=== PATIENT | male | born 1975 | race Caucasian/White ===

== ENCOUNTER 2019-01-21 23:28 | Inpatient (IN) | payer BC ==
[~2019-01-21] VITALS: Ht 172.7 cm; Wt 111.0 kg
[~2019-01-21 23:28] MED LIST: ASPI-831 PO; ATOR-2 PO; BENA20TA4 PO; IBUP-1982 PO; NICO-546 TD; TICA90TA PO
[2019-01-22] MEDS: POTASSIUM CHLORIDE 100 ML IVPB SCH ×2 (02:11→04:24)
--- NOTE | 2019-01-22 03:28 | ERD ---
ER Documentation Chief Complaint Chief Complaint CHEST PAIN X4DAYS WITH COUGH; DENIES CARDIAC HX HPI This is a very pleasant 43 denies any chest pain on and off for the past 4 days. Denies history of cardiac disease. Pain is midsternal radiating to the left shoulder. Mild associated shortness of breath on exertion. Mild nausea no vomiting no fevers no chills no diaphoresis. Patient has not followed up with her primary care physician in "years ". Smokes 3 packs of cigarettes a day. ROS All systems reviewed and are negative except as per history of present illness. Medications Home Meds No Active Prescriptions or Reported Meds Allergies Allergies: Coded Allergies: No Known Drug Allergies (Verified Allergy, Unknown, 01/22/19) PMhx/Soc History of Surgery: Yes (NASAL SURGERY) Anesthesia Reaction: No Hx Neurological Disorder: No Hx Respiratory Disorders: No Hx Cardiac Disorders: Yes (HTN) Hx Psychiatric Problems: No Hx Miscellaneous Medical Probl: No Hx Alcohol Use: No Hx Substance Use: No Hx Tobacco Use: Yes Smoking Status: Current some day smoker Physical Exam Vitals Vital Signs Date Temp Pulse Resp B/P (MAP) Pulse Ox O2 O2 Flow FiO2 Time Delivery Rate 01/22/19 57 18 125/91 96 Room Air 02:33 (102) 01/21/19 77 18 160/89 100 Room Air 23:50 (112) 01/21/19 97.0 84 81 189/115 99 23:31 (139) Physical Exam Const: No acute distress Head: Atraumatic Eyes: Normal Conjunctiva ENT: Normal External Ears, Nose and Mouth. Neck: Full range of motion. No meningismus. Resp: Clear to auscultation bilaterally Cardio: Regular rate and rhythm, no murmurs Abd: Soft, non tender, non distended. Normal bowel sounds Skin: No petechiae or rashes Back: No midline or flank tenderness Ext: No cyanosis, or edema Neur: Awake and alert Psych: Normal Mood and Affect Result Diagram: 01/22/19 0008 01/22/19 0049 Results 24 hrs Laboratory Tests Test 01/22/19 00:08 01/22/19 00:49 White Blood Count 11.8 10^3/ul Red Blood Count 4.42 10^6/ul Hemoglobin 13.5 g/dl Hematocrit 41.4 % Mean Corpuscular Volume 93.7 fl Mean Corpuscular Hemoglobin 30.5 pg Mean Corpuscular Hemoglobin Concent 32.6 g/dl Red Cell Distribution Width 12.7 % Platelet Count 228 10^3/UL Mean Platelet Volume 9.7 fl Immature Granulocytes % 0.300 % Neutrophils % 60.4 % Lymphocytes % 29.1 % Monocytes % 6.8 % Eosinophils % 3.1 % Basophils % 0.3 % Nucleated Red Blood Cells % 0.0 /100WBC Immature Granulocytes # 0.040 10^3/ul Neutrophils # 7.1 10^3/ul Lymphocytes # 3.4 10^3/ul Monocytes # 0.8 10^3/ul Eosinophils # 0.4 10^3/ul Basophils # 0.0 10^3/ul Nucleated Red Blood Cells # 0.0 10^3/ul Sodium Level 141 mmol/L Potassium Level 2.7 mmol/L Chloride Level 117 mmol/L Carbon Dioxide Level 21 mmol/L Anion Gap 3 Blood Urea Nitrogen 12 mg/dl Creatinine 0.66 mg/dl Est Glomerular Filtrat Rate mL/min > 60 mL/min Glucose Level 80 mg/dl Calcium Level 6.3 mg/dl Total Bilirubin 0.5 mg/dl Direct Bilirubin 0.00 mg/dl Indirect Bilirubin 0.5 mg/dl Aspartate Amino Transf (AST/SGOT) 20 IU/L Alanine Aminotransferase (ALT/SGPT) 31 IU/L Alkaline Phosphatase 35 IU/L Troponin I 0.017 ng/ml B-Type Natriuretic Peptide 39 PG/ML Total Protein 5.5 g/dl Albumin 2.6 g/dl Globulin 2.90 g/dl Albumin/Globulin Ratio 0.89 Current Medications Medications Dose Sig/Soraya Start Time Status Last (Trade) Ordered Route PRN Stop Time Admin Dose Reason Admin Potassium 100 ml @ Q2H IVPB 01/22/19 01/22/19 Chloride 50 mls/hr 02:00 02:11 01/22/19 05:59 Procedures/MDM EKG: Rate/Rhythm: [Normal Sinus Rhythm] QRS, ST, T-waves: [No changes consistent w/ acute ischemia] Impression: [No evidence of ischemia or arrhythmia] Chest X-ray 1V Interpreted by me: Soft Tissue: No acute abnormalities Bones: No acute abnormalities Mediastinum/Cardiac Silhouette/Lungs: [No acute abnormalities] Medical decision making: Patient's symptoms are concerning for cardiac cause will require inpatient workup and continuous monitoring. Further w/u for ischemia, arrhythmia, PE or dissection will be deferred to the inpatient team. Potassium was also noted to be low. Repleted here in the emergency department intravenous potassium supplementation Accepting Care Team: Current data and ongoing care discussed. Time: 3:27 AM Primary Provider: Dr. Mims Consulting: Deferred to primary Outstanding Data: none Departure Diagnosis: Primary Impression: Chest pain Chest pain type: unspecified Qualified Codes: R07.9 - Chest pain, unspecified Condition: Serious PAPA MENDES Jan 22, 2019 03:28
[2019-01-22] MEDS ORDERED: ONDANSETRON 4 MG INJ IV PRN ×2 (03:30→12:30)
[2019-01-22] MEDS ORDERED: ACETAMINOPHEN 325 MG TAB PO PRN ×2 (03:30→12:30)
[2019-01-22] MEDS ORDERED: morphine 4 MG/ML VIAL IV STA (05:21)
[2019-01-22] MEDS ORDERED: ONDANSETRON 4 MG INJ IV STA (05:21)
[2019-01-22] MEDS ORDERED: ASPIRIN 81 MG TAB PO STA (05:21)
[2019-01-22] MEDS ORDERED: POTASSIUM CHLORIDE (SR) 20 MEQ TAB PO STA (08:53)
--- NOTE | 2019-01-22 10:44 | QN ---
Documentation Comment Second troponin was positive and the patient was given Lovenox 100 mg subc utaneous. I have also let Dr. Milligan know about the positive troponin. Repeat EKG was done and does not show any ST elevations or depressions. EKG #2 read by me: Rate/Rhythm: Sinus bradycardia rate of 46 Intervals: Normal Impression: Bradycardia without ST elevations TIM AUGUST MD Jan 22, 2019 10:44
[2019-01-22] MEDS ORDERED: ENOXAPARIN 100 MG/ML SYG SC ONE (11:00)
[2019-01-22] MEDS ORDERED: MAGNESIUM HYDROXIDE 30ML CUP PO PRN (12:30)
[2019-01-22] MEDS ORDERED: ZOLPIDEM 5 MG TAB PO PRN (12:30)
[2019-01-22] MEDS ORDERED: morphine 2 MG INJ IV PRN (12:30)
[2019-01-22] MEDS ORDERED: NITROGLYCERIN (SL) 0.4 MG TAB SL PRN (12:30)
[2019-01-22] MEDS ORDERED: DOCUSATE SODIUM 100 MG CAP PO PRN (12:30)
[2019-01-22] MEDS ORDERED: NACL 0.9% 3 ML SYG IV SCH (12:30)
--- NOTE | 2019-01-22 12:39 | HP ---
Date/Time of Note Date/Time of Note DATE: 01/22/19 TIME: 12:30 Assessment/Plan VTE Prophylaxis SCD applied (from Nsg): Yes Pharmacological prophylaxis: LMWH Lines/Catheters IV Catheter Type (from Nrsg): Saline Lock Assessment/Plan Assessment/Plan -Chest pain, rule out acute coronary syndrome, will obtain cardiac enzymes q. 6 hours x 3. 2D echo for evaluation of ejection fraction. Aspirin nitroglycerin and morphine as needed for pain. Admit to telemetry. Dr. Ivory is asked to see patient in cardiology consultation. -Every day smoker, cessation is strongly advised. Further recommendations based on clinical course. Plan of care discussed with Dr. Milligan. Result Diagram: 01/22/19 0008 01/22/19 0940 Results 24hrs Laboratory Tests Test 01/22/19 00:08 01/22/19 00:49 01/22/19 09:40 White Blood Count 11.8 H Red Blood Count 4.42 L Hemoglobin 13.5 L Hematocrit 41.4 L Mean Corpuscular Volume 93.7 Mean Corpuscular Hemoglobin 30.5 Mean Corpuscular Hemoglobin Concent 32.6 Red Cell Distribution Width 12.7 Platelet Count 228 Mean Platelet Volume 9.7 Immature Granulocytes % 0.300 Neutrophils % 60.4 Lymphocytes % 29.1 Monocytes % 6.8 Eosinophils % 3.1 Basophils % 0.3 Nucleated Red Blood Cells % 0.0 Immature Granulocytes # 0.040 H Neutrophils # 7.1 Lymphocytes # 3.4 H Monocytes # 0.8 Eosinophils # 0.4 Basophils # 0.0 Nucleated Red Blood Cells # 0.0 Sodium Level 141 138 Potassium Level 2.7 *L 5.0 # Chloride Level 117 H 105 # Carbon Dioxide Level 21 28 Anion Gap 3 L 5 Blood Urea Nitrogen 12 12 Creatinine 0.66 0.87 Est Glomerular Filtrat Rate mL/min > 60 > 60 Glucose Level 80 97 Calcium Level 6.3 L 9.0 Total Bilirubin 0.5 Direct Bilirubin 0.00 Indirect Bilirubin 0.5 Aspartate Amino Transf (AST/SGOT) 20 Alanine Aminotransferase (ALT/SGPT) 31 Alkaline Phosphatase 35 L Troponin I 0.017 0.616 *H B-Type Natriuretic Peptide 39 Total Protein 5.5 L Albumin 2.6 L Globulin 2.90 Albumin/Globulin Ratio 0.89 HPI/ROS Admit Date/Time Admit Date/Time Hx of Present Illness The patient is 43-year-old [place] male who denies any chronic conditions. Patient developed intermittent chest pressure over the last 5 days which got e xtremely worse yesterday. Pain with radiation to shoulders, upper extremities, and neck. Patient also complains of shortness of breath on exertion and mild nausea. Patient denies fevers chills denies extremity swelling. Patient smokes 2 packs of cigarettes a day smoked for 30 years. Patient does not follow with any physician currently. Patient received aspirin and morphine in the emergency room with some relief in symptoms. Patient will be admitted for further evaluation and management. ROS 12 point review of system is negative except for what mentioned in HPI PMH/Family/Social Past Medical History Medications Current Medications Ondansetron HCl (Zofran Inj) 4 mg ER BRIDGE PRN IV NAUSEA/VOMITING; Start 01/22/19 at 03:30; Stop 01/23/19 at 03:29 Acetaminophen (Tylenol Tab) 650 mg ER BRIDGE PRN PO .MILD PAIN 1-3 OR TEMP; Start 01/22/19 at 03:30; Stop 01/23/19 at 03:29 IV Flush (NS 3 ml) 3 ml PER PROTOCOL IV ; Start 01/22/19 at 12:30; Status UNV Ondansetron HCl (Zofran Inj) 4 mg Q6H PRN IV NAUSEA/VOMITING; Start 01/22/19 at 12:30; Status UNV Nitroglycerin (Nitroglycerin (Sl Tab) 0.4 Mg) 1 tab Q5M PRN SL .CHEST PAIN; Start 01/22/19 at 12:30; Status UNV Acetaminophen (Tylenol Tab) 650 mg Q6H PRN PO .PAIN 1-3 OR TEMP; Start 01/22/19 at 12:30; Status UNV Morphine Sulfate (morphine) 2 mg Q4H PRN IV .PAIN 7-10; Start 01/22/19 at 12:30; Status UNV Zolpidem Tartrate (Ambien) 5 mg QHS PRN PO .INSOMNIA; Start 01/22/19 at 12:30; Status UNV Docusate Sodium (Colace) 100 mg Q12H PRN PO .CONSTIPATION; Start 01/22/19 at 12:30; Status UNV Magnesium Hydroxide (Milk Of Mag) 30 ml DAILY PRN PO .CONSTIPATION; Start 01/22/19 at 12:30; Status UNV Famotidine (Pepcid Iv) 20 mg Q12 IV ; Start 01/22/19 at 21:00; Status UNV Coded Allergies: No Known Drug Allergies (Verified Allergy, Unknown, 01/22/19) Past Surgical History Past Surgical Hx: other (No surgery) Family History Significant Family History: other (Denies any history of sudden cardiac , both parents are alive) Social History Alcohol Use: occasionally Smoking Status: Current some day smoker Drug Use: none Exam/Review of Systems Vital Signs Vitals Vital Signs Date Temp Pulse Resp B/P (MAP) Pulse Ox O2 O2 Flow FiO2 Time Delivery Rate 01/22/19 98.0 60 18 128/89 98 Room Air 11:26 (102) Exam Constitutional: alert, oriented Head: normocephalic Neck: supple Respiratory: clear to auscultation Cardiovascular: regular rate and rhythm Gastrointestinal: soft, non-tender Musculoskeletal: nl extremities to inspection Extremities: normal pulses NOE CARBONE Jan 22, 2019 12:39
[2019-01-22 19:30] VITALS: Ht 172.7 cm; Wt 111.0 kg
[2019-01-22 20:03] VITALS: BP 133/83; PULSE 53; RESP 18
[2019-01-22] MEDS: FAMOTIDINE 20 MG INJ IV SCH (20:48)
[2019-01-22] MEDS: ENOXAPARIN 100 MG/ML SYG SC SCH (21:19)
[2019-01-22 23:59] VITALS: BP 124/63; PULSE 56; RESP 18
[2019-01-23 04:00] VITALS: BP 99/65; PULSE 56; RESP 18
[2019-01-23 07:46] VITALS: BP 111/70; PULSE 53; RESP 17
[2019-01-23] MEDS: FAMOTIDINE 20 MG INJ IV SCH (09:43)
[2019-01-23] MEDS: ASPIRIN (EC) 325 MG TAB PO SCH (09:43)
[2019-01-23] MEDS: ENOXAPARIN 100 MG/ML SYG SC SCH ×2 (09:51→21:54)
[2019-01-23 11:24] VITALS: BP 116/68; PULSE 52; RESP 18
[2019-01-23 15:30] VITALS: BP 132/82; PULSE 56; RESP 19
--- NOTE | 2019-01-23 16:54 | PN ---
Date/Time of Note Date/Time of Note DATE: 01/23/19 TIME: 16:49 Assessment/Plan VTE Prophylaxis Risk score (from Ns)>0 risk: 1 SCD applied (from [facility]): No SCD contraindicated: patient refusal Pharmacological prophylaxis: LMWH Lines/Catheters IV Catheter Type (from [facility]): Saline Lock Assessment/Plan Hospital Course Assessment/Plan -Non-STEMI, continue aspirin and Lovenox. Continue nitroglycerin and morphine PRN for chest pain. 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 Dr. Ivory is chino teresa in cardiology consultation. -Every day smoker, cessation is strongly advised. Further recommendations based on clinical course. Plan of care discussed with Dr. Milligan. Result Diagram: 01/23/19 0537 01/23/19 0537 Results 24hrs Laboratory Tests Test 01/23/19 01:03 01/23/19 05:37 Creatine Kinase 181 Creatine Kinase Index 3.9 Creatinine Kinase MB (Mass) 7.06 H Troponin I 1.440 *H 1.160 *H White Blood Count 8.9 # Red Blood Count 4.62 L Hemoglobin 14.0 Hematocrit 43.6 Mean Corpuscular Volume 94.4 Mean Corpuscular Hemoglobin 30.3 Mean Corpuscular Hemoglobin Concent 32.1 Red Cell Distribution Width 12.9 Platelet Count 272 Mean Platelet Volume 10.0 Immature Granulocytes % 0.400 Neutrophils % 50.9 Lymphocytes % 36.0 Monocytes % 8.2 Eosinophils % 3.9 Basophils % 0.6 Nucleated Red Blood Cells % 0.0 Immature Granulocytes # 0.040 H Neutrophils # 4.5 Lymphocytes # 3.2 H Monocytes # 0.7 Eosinophils # 0.4 Basophils # 0.1 Nucleated Red Blood Cells # 0.0 Sodium Level 139 Potassium Level 4.9 Chloride Level 104 Carbon Dioxide Level 29 Anion Gap 6 Blood Urea Nitrogen 16 Creatinine 1.06 Est Glomerular Filtrat Rate mL/min > 60 Glucose Level 102 Hemoglobin A1c 5.5 Calcium Level 9.0 Magnesium Level 2.2 Total Bilirubin 0.7 Direct Bilirubin 0.00 Indirect Bilirubin 0.7 Aspartate Amino Transf (AST/SGOT) 29 Alanine Aminotransferase (ALT/SGPT) 42 Alkaline Phosphatase 55 # Total Protein 7.1 # Albumin 4.0 # Globulin 3.10 Albumin/Globulin Ratio 1.29 Triglycerides Level 107 Cholesterol Level 229 H LDL Cholesterol, Calculated 181 HDL Cholesterol 27 Cholesterol/HDL Ratio 8.4 Thyroid Stimulating Hormone (TSH) 2.120 Exam/Review of Systems Exam Vitals Vital Signs Date Temp Pulse Resp B/P (MAP) Pulse Ox O2 O2 Flow FiO2 Time Delivery Rate 01/23/19 98.7 56 19 132/82 98 Room Air 15:30 (99) 01/22/19 14:52 Intake and Output 01/22/19 01/22/19 01/23/19 1515:00 23:00 07:00 IntakeIntake Total 240 ml OutputOutput Total 1 ml BalanceBalance 239 ml Exam Constitutional: alert, oriented Head: normocephalic Respiratory: clear to auscultation Cardiovascular: regular rate and rhythm Gastrointestinal: soft, non-tender Musculoskeletal: nl extremities to inspection Extremities: normal pulses Results Results 24hrs Laboratory Tests Test 01/23/19 01:03 01/23/19 05:37 Creatine Kinase 181 Creatine Kinase Index 3.9 Creatinine Kinase MB (Mass) 7.06 H Troponin I 1.440 *H 1.160 *H White Blood Count 8.9 # Red Blood Count 4.62 L Hemoglobin 14.0 Hematocrit 43.6 Mean Corpuscular Volume 94.4 Mean Corpuscular Hemoglobin 30.3 Mean Corpuscular Hemoglobin Concent 32.1 Red Cell Distribution Width 12.9 Platelet Count 272 Mean Platelet Volume 10.0 Immature Granulocytes % 0.400 Neutrophils % 50.9 Lymphocytes % 36.0 Monocytes % 8.2 Eosinophils % 3.9 Basophils % 0.6 Nucleated Red Blood Cells % 0.0 Immature Granulocytes # 0.040 H Neutrophils # 4.5 Lymphocytes # 3.2 H Monocytes # 0.7 Eosinophils # 0.4 Basophils # 0.1 Nucleated Red Blood Cells # 0.0 Sodium Level 139 Potassium Level 4.9 Chloride Level 104 Carbon Dioxide Level 29 Anion Gap 6 Blood Urea Nitrogen 16 Creatinine 1.06 Est Glomerular Filtrat Rate mL/min > 60 Glucose Level 102 Hemoglobin A1c 5.5 Calcium Level 9.0 Magnesium Level 2.2 Total Bilirubin 0.7 Direct Bilirubin 0.00 Indirect Bilirubin 0.7 Aspartate Amino Transf (AST/SGOT) 29 Alanine Aminotransferase (ALT/SGPT) 42 Alkaline Phosphatase 55 # Total Protein 7.1 # Albumin 4.0 # Globulin 3.10 Albumin/Globulin Ratio 1.29 Triglycerides Level 107 Cholesterol Level 229 H LDL Cholesterol, Calculated 181 HDL Cholesterol 27 Cholesterol/HDL Ratio 8.4 Thyroid Stimulating Hormone (TSH) 2.120 Medications Medication Current Medications IV Flush (NS 3 ml) 3 ml PER PROTOCOL IV ; Start 01/22/19 at 12:30 Ondansetron HCl (Zofran Inj) 4 mg Q6H PRN IV NAUSEA/VOMITING; Start 01/22/19 at 12:30 Nitroglycerin (Nitroglycerin (Sl Tab) 0.4 Mg) 1 tab Q5M PRN SL .CHEST PAIN; Start 01/22/19 at 12:30 Acetaminophen (Tylenol Tab) 650 mg Q6H PRN PO .PAIN 1-3 OR TEMP; Start 01/22/19 at 12:30 Morphine Sulfate (morphine) 2 mg Q4H PRN IV .PAIN 7-10; Start 01/22/19 at 12:30 Zolpidem Tartrate (Ambien) 5 mg QHS PRN PO .INSOMNIA; Start 01/22/19 at 12:30 Docusate Sodium (Colace) 100 mg Q12H PRN PO .CONSTIPATION; Start 01/22/19 at 12:30 Magnesium Hydroxide (Milk Of Mag) 30 ml DAILY PRN PO .CONSTIPATION; Start 01/22/19 at 12:30 Carvedilol (Coreg) 6.25 mg BID PO Last administered on 01/22/19at 20:50; Admin Dose 6.25 MG; Start 01/22/19 at 21:00 Enoxaparin Sodium (Lovenox) 100 mg BID SC Last administered on 01/23/19at 09:51; Admin Dose 100 MG; Start 01/22/19 at 21:00; Stop 01/23/19 at 23:00 Aspirin (Ecotrin) 325 mg DAILY PO Last administered on 01/23/19at 09:43; Admin Dose 325 MG; Start 01/23/19 at 09:00 Atorvastatin Calcium (Lipitor) 80 mg HS PO ; Start 01/23/19 at 21:00 Famotidine (Pepcid) 20 mg Q12 PO ; Start 01/23/19 at 21:00 Diazepam (Valium) 5 mg OC ONCE PO ; Start 01/24/19 at 07:00; Stop 01/24/19 at 07:01 Diphenhydramine HCl (Benadryl) 50 mg OC ONCE PO ; Start 01/24/19 at 07:00; Stop 01/24/19 at 07:01 NOE CARBONE Jan 23, 2019 16:54
--- NOTE | 2019-01-23 16:55 | RADRPT ---
Echocardiogram Report Patient Name: Mary Ann MCCORMICK ID: [id number] : 1975 (43y 4m)Study Date: 01/22/2019 1:36:14 PM Gender: MAccession #: [id number] Tech: Naif Molina RDCS Location: [facility] Ref.Physician: NOE CARBONE Height(Cm): BSA: Weight(Kg): Quality: AdequateOrder Physician: NOE CARBONE Account #: Procedures: Echocardiographic Report: Transthoracic echocardiogram with complete 2D, M-Mode, and doppler examination. Indications: Chest Pain. Measurements: 2D/M Mode Doppler Measurement Value Normal Range Measurement Value Normal Range LVIDd 2D 4.9 [ 4.2 - 5.8 ] cm AV Peak Dar 1.5 [ 100.0 - 170.0 ] cm/sec LVIDs 2D 2.9 [ 2.5 - 4.0 ] cm AV Peak PG 9.0 [ 2.0 - 9.0 ] mmHg LVPWd 2D 1.3 [ 0.6 - 1.0 ] cm LVOT Peak Dar 1.1 [ 70.0 - 110.0 ] cm/sec IVSd 2D 1.2 [ 0.6 - 1.0 ] cm LVOT Peak PG 5.0 [ 2.0 - 6.0 ] mmHg AoR Diam 2D 3.1 [ 2.6 - 3.4 ] cm MV E Peak Dar 0.8 [ 60.0 - 130.0 ] cm/sec EDV 2D 113.0 [ 62.0 - 150.0 ] ml MV A Peak Dar 0.6 [ 100.0 - 120.0 ] cm/sec ESV 2D 33.0 [ 21.0 - 61.0 ] ml MV E/A 1.5 [ 0.8 - 1.5 ] ratio EF 2D 70.8 [ 52.0 - 72.0 ] percent MV Decel Time 208 [ 104 - 258 ] msec LA Dimen 2D 3.8 [ 3.0 - 4.0 ] cm Lat E` Dar 0.1 [ 10.0 - 15.0 ] cm/sec Lateral E/E` 8.7 [ 1.0 - 2.0 ] ratio Med E` Dar 0.1 cm/sec MV E/A 1.5 [ 0.8 - 1.5 ] ratio Findings: Left Ventricle: Normal left ventricular systolic function. Normal left ventricular cavity size. Mild concentric left ventricular hypertrophy. Ejection fraction is visually estimated at 60 %. Tissue Doppler/Mitral Doppler indices are within normal limits. Right Ventricle: Normal right ventricular size. Normal right ventricular systolic function. Left Atrium: The left atrium is normal in size. Right Atrium: The right atrium is normal in size. Mitral Valve: Normal appearance and function of the mitral valve with trace physiologic regurgitation. Aortic Valve: Normal appearance of the aortic valve. No significant aortic stenosis or insufficiency. Tricuspid Valve: Normal appearance and function of the tricuspid valve with trace physiologic regurgitation. Normal right ventricular systolic pressure. Pulmonic Valve: Normal pulmonic valve appearance. Pericardium: Normal pericardium with no significant pericardial effusion. Aorta: Normal aortic root. IVC: Dilated IVC with respiratory collapse consistent with elevated right atrial pressure. Conclusions: Normal left ventricular systolic function. Normal left ventricular cavity size. Mild concentric left ventricular hypertrophy. Ejection fraction is visually estimated at 60 %. Tissue Doppler/Mitral Doppler indices are within normal limits. Normal appearance and function of the mitral valve with trace physiologic regurgitation. Normal appearance and function of the tricuspid valve with trace physiologic regurgitation. Normal right ventricular systolic pressure. Electronically Signed By: Ludwig Ivory 2019-01-23 16:55:07 PDT
--- NOTE | 2019-01-23 18:40 | CONS ---
DATE OF ADMISSION: 01/22/2019 DATE OF CONSULTATION: 01/23/2019 TYPE OF CONSULTATION: Cardiology. REASON FOR CONSULTATION: Non-ST elevation myocardial infarction. REQUESTING PHYSICIAN: Ashish Milligan MD HISTORY OF PRESENT ILLNESS: Mr. Dugan is a 43-year-old male without significant past medical hi story who presented with acute onset of substernal chest pain, describes as pressure-like sensation w hile driving his car. Upon arrival in the emergency department, temperature of 97, blood pressure 18 9/115, pulse 84, respiratory rate 18, satting 99%. The patient's labs were notable for white blood c ell count of 11.8, hemoglobin of 13.5, platelet count of 228, sodium of 141, potassium 2.7, creatinin e of 0.6, BUN 12, troponin initially negative, BNP of 39. The patient underwent a chest x-ray reveal ing no evidence of acute cardiopulmonary abnormalities. The patient's electrocardiogram revealed sin us rhythm with borderline anterolateral ST depressions. The patient was subsequently admitted to the floor and since admit to the floor, had troponins trending and subsequently trended up and became po sitive with a peak of 1.44 now down to 1.16. Now today, patient denies ongoing chest pain. The zeny ent has been placed on Lovenox at this time. PAST MEDICAL HISTORY: As above in HPI. MEDICATIONS CURRENTLY IN HOSPITAL: 1. Lipitor 80 mg at bedtime. 2. Pepcid 20 mg q.12. 3. Aspirin 325 mg daily. 4. Carvedilol 6.25 mg p.o. b.i.d. 5. Lovenox 40 mg subcutaneously b.i.d. 6. Morphine p.r.n. 7. Ambien p.r.n. 8. Colace p.r.n. 9. Milk of Magnesia. ALLERGIES: NO KNOWN DRUG ALLERGIES. SOCIAL HISTORY: Positive tobacco, social EtOH. No illicit drug use. FAMILY HISTORY: No history of sudden cardiac or early CAD. REVIEW OF SYSTEMS: As above in HPI. CONSTITUTIONAL: No fevers, chills. PULMONARY: No current shortness of breath. CARDIOVASCULAR: Positive chest pain, non-ST elevation myocardial infarction. GASTROINTESTINAL: No vomiting. GENITOURINARY: No hematuria. MUSCULOSKELETAL: Degenerative joint disease. PSYCHIATRIC: The patient denies depression. NEUROLOGIC: No documented history of CVA. PHYSICAL EXAMINATION VITAL SIGNS: Temperature of 98.7, blood pressure 160/68, pulse 52, respiratory rate 18, satting 98%. GENERAL: The patient is alert, awake, in no acute distress. NECK: JVP is approximately 8 to 9 cm of water. CHEST: Fair air movement throughout. HEART: Bradycardic, regular rhythm, normal S1, S2, I/ systolic murmur, nondisplaced PMI. ABDOMEN: Positive bowel sounds, soft. EXTREMITIES: No edema, 1+ pulses bilateral posterior tibial. LABORATORIES: Most recently from today, white blood cell count of 8.9, hemoglobin 14.0, platelet cou nt of 272. Sodium 139, potassium 4.9, creatinine 1.0, BUN 16. LDL 181, HDL 27. IMAGING STUDIES: As above in HPI. No further imaging studies for my review at this time. ELECTROCARDIOGRAM: As above in HPI. No further electrocardiograms for my review at this time. IMPRESSION: 1. Non-ST elevation myocardial infarction with now down trending cardiac enzymes. 2. Chest pain secondary to #1 consistent with angina. 3. Abnormal electrocardiogram with anterolateral ST depressions, borderline. 4. Hypertension. 5. Bradycardia. 6. Dyslipidemia with low HDL. 7. Tobacco dependence. RECOMMENDATIONS: 1. At this time, we would maintain the patient on telemetry monitoring to follow rhythm and rates cl osely. 2. Continue to trend the patient's cardiac enzymes, assess for ongoing cardiac damage. 3. Continue the patient's beta parker with decrease dose and give only as tolerated. 4. We will continue the patient's Lovenox for now and the patient will get a second dose this evenin g and the Lovenox will be discontinued in preparation for patient to be scheduled for left heart cath eterization tomorrow morning. The patient cannot receive Lovenox in the morning or I will not be abl e to do the catheterization on Lovenox because I cannot assess the patient's degree of anticoagulatio n. 5. Follow the patient's 2D echo done for assessment of ejection fraction, wall motion and major valv e abnormalities. 6. We will give patient sublingual nitroglycerin for any recurrent episodes of chest pain. Thank you for allowing me to take part to take part in the care of this patient. I will continue to follow him very closely with you with further recommendations will be made as the patient progresses his inpatient hospital clinical course. Dictated By: LEA MILLER/MARIO Conf#: [id number] DID#: [id number] CC: ASHISH MILLIGAN MD;*EndCC*
[2019-01-23] MEDS: FAMOTIDINE 20 MG TAB PO SCH (20:02)
[2019-01-23] MEDS: ATORVASTATIN 80 MG TAB PO SCH (20:02)
[2019-01-23 20:13] VITALS: BP 125/76; PULSE 60; RESP 18
[2019-01-23 23:36] VITALS: BP_SYST 116; BP_SYST 130; BP_DIAS 61; BP_DIAS 80; PULSE 62; RESP 18
[2019-01-24] VITALS (31 sets, daily range): BP systolic 108–164; BP diastolic 72–116; PULSE 44–69; RESP 13–23
[2019-01-24] MEDS ORDERED: DIAZEPAM 5 MG TAB PO ONE (07:00)
[2019-01-24] MEDS ORDERED: DIPHENHYDRAMINE 50 MG CAP PO ONE (07:00)
[2019-01-24] MEDS ORDERED: LIDOCAINE 1% (MDV) 20 ML INJ ONE (08:27)
[2019-01-24] MEDS ORDERED: IODIXANOL LOCM 100 ML BTL ONE ×4 (08:27→10:39)
[2019-01-24] MEDS ORDERED: FENTAnyl 50 MCG/ML VIAL ONE (08:43)
[2019-01-24] MEDS ORDERED: MIDAZOLAM 1 MG/ML 2 ML INJ ONE (08:43)
[2019-01-24] MEDS ORDERED: VERAPAMIL 5 MG INJ ONE (08:43)
[2019-01-24] MEDS ORDERED: HEPARIN 1000 UNITS/ML 10 ML INJ ONE (08:44)
[2019-01-24] MEDS: FAMOTIDINE 20 MG TAB PO SCH ×2 (09:00→20:41)
[2019-01-24] MEDS ORDERED: BIVALIRUDIN 250MG /NS 50 ML 50 ML IVPB ONE ×3 (09:49→11:43)
[2019-01-24] MEDS ORDERED: morphine 10 MG INJ ONE (10:34)
[2019-01-24] MEDS ORDERED: TICAGRELOR 90 MG TABLET ONE (11:13)
[2019-01-24] MEDS ORDERED: ASPIRIN 325 MG TAB ONE (11:13)
--- NOTE | 2019-01-24 11:22 | CONS ---
Assessment/Plan Assessment/Plan Hospital Course (Demo Recall) IMPRESSION: 1. Non-ST elevation myocardial infarction with now down trending cardiac enzymes. 2. Chest pain secondary to #1 consistent with angina. 3. Abnormal electrocardiogram with anterolateral ST depressions, borderline. 4. Hypertension. 5. Bradycardia. 6. Dyslipidemia with low HDL. 7. Tobacco dependence. Recc: -Tele -Continue asa/statin -[place] [facility] [place] today with possible PTCA/stent Consultation Date/Type/Reason Admit Date/Time Jan 22, 2019 at 03:26 Initial Consult Date 01/23/19 Type of Consult Cardiology Reason for Consultation Nstemi Requesting Provider: ASHISH DUMAS MD Date/Time of Note DATE: 01/24/19 TIME: 11:17 Exam/Review of Systems Vital Signs Vitals Vital Signs Date Temp Pulse Resp B/P (MAP) Pulse Ox O2 O2 Flow FiO2 Time Delivery Rate 01/24/19 Room Air 07:59 01/24/19 98.1 50 18 125/85 97 07:22 (98) 01/22/19 14:52 Intake and Output 01/23/19 01/23/19 01/24/19 1515:00 23:00 07:00 IntakeIntake Total 900 ml BalanceBalance 900 ml Exam Exam Review of Systems: CONSTITUTIONAL: No fevers, chills. PULMONARY: No sob CARDIOVASCULAR: No chest pain/palpitations GASTROINTESTINAL: No nausea/vomiting. GENITOURINARY: No hematuria/dysuria. MUSCULOSKELETAL: No myagias/arthalgias. PSYCHIATRIC: The patient denies depression. NEUROLOGIC: No weakness Constitutional: alert, oriented Psych: no complaints Head: normocephalic ENMT: mucosa pink and moist Neck: supple, jvd (9 cm water) Respiratory: clear to auscultation Cardiovascular: regular rate and rhythm Gastrointestinal: soft, non-tender Musculoskeletal: muscle tone (normal) Extremities: edema (none) Neurological: other (No focal deficits) Labs Result Diagram: 01/24/19 0538 01/24/19 0538 Results 24hrs Laboratory Tests Test 01/24/19 05:38 White Blood Count 9.9 Red Blood Count 4.53 L Hemoglobin 14.0 Hematocrit 43.1 Mean Corpuscular Volume 95.1 Mean Corpuscular Hemoglobin 30.9 Mean Corpuscular Hemoglobin Concent 32.5 Red Cell Distribution Width 12.7 Platelet Count 265 Mean Platelet Volume 10.3 Immature Granulocytes % 0.300 Neutrophils % 48.6 Lymphocytes % 36.8 Monocytes % 10.0 Eosinophils % 3.8 Basophils % 0.5 Nucleated Red Blood Cells % 0.0 Immature Granulocytes # 0.030 Neutrophils # 4.8 Lymphocytes # 3.6 H Monocytes # 1.0 H Eosinophils # 0.4 Basophils # 0.1 Nucleated Red Blood Cells # 0.0 Prothrombin Time 12.5 Prothrombin Time Ratio 1.0 INR International Normalized Ratio 0.92 Activated Partial Thromboplast Time 40.1 H Sodium Level 140 Potassium Level 4.6 Chloride Level 106 Carbon Dioxide Level 28 Anion Gap 6 Blood Urea Nitrogen 14 Creatinine 0.99 Est Glomerular Filtrat Rate mL/min > 60 Glucose Level 108 Calcium Level 9.0 Medications Medications Current Medications IV Flush (NS 3 ml) 3 ml PER PROTOCOL IV ; Start 01/22/19 at 12:30 Ondansetron HCl (Zofran Inj) 4 mg Q6H PRN IV NAUSEA/VOMITING; Start 01/22/19 at 12:30 Nitroglycerin (Nitroglycerin (Sl Tab) 0.4 Mg) 1 tab Q5M PRN SL .CHEST PAIN; Start 01/22/19 at 12:30 Acetaminophen (Tylenol Tab) 650 mg Q6H PRN PO .PAIN 1-3 OR TEMP; Start 01/22/19 at 12:30 Morphine Sulfate (morphine) 2 mg Q4H PRN IV .PAIN 7-10; Start 01/22/19 at 12:30 Zolpidem Tartrate (Ambien) 5 mg QHS PRN PO .INSOMNIA; Start 01/22/19 at 12:30 Docusate Sodium (Colace) 100 mg Q12H PRN PO .CONSTIPATION; Start 01/22/19 at 12:30 Magnesium Hydroxide (Milk Of Mag) 30 ml DAILY PRN PO .CONSTIPATION; Start 01/22/19 at 12:30 Carvedilol (Coreg) 6.25 mg BID PO Last administered on 01/23/19at 20:04; Admin Dose 6.25 MG; Start 01/22/19 at 21:00 Aspirin (Ecotrin) 325 mg DAILY PO Last administered on 01/23/19at 09:43; Admin Dose 325 MG; Start 01/23/19 at 09:00 Atorvastatin Calcium (Lipitor) 80 mg HS PO Last administered on 01/23/19at 20:02; Admin Dose 80 MG; Start 01/23/19 at 21:00 Famotidine (Pepcid) 20 mg Q12 PO Last administered on 01/23/19at 20:02; Admin Dose 20 MG; Start 01/23/19 at 21:00 LEA ROJO Jan 24, 2019 11:22
[2019-01-24] MEDS ORDERED: SOD CHLORIDE 0.9% 1,000 ML IV SCH (11:24)
--- NOTE | 2019-01-24 11:24 | SIPON ---
Date/Time of Note Date/Time of Note DATE: 01/24/19 TIME: 11:23 Operative Report Preoperative Diagnosis 1.LHC 2.PTCA/stent x 2 to LCX/OM Postoperative Diagnosis 1.obstructive cad s/p stent x 2 to LCX/OM Operation/Procedure Performed 1.[facility] 2.PTCA/stent x 2 to LCX/OM kissing fashion Surgeon see signature line family readiness support assistant 1.Zenon Anesthesia: moderate sedation Estimated blood loss: minimal Transfusion Required none Specimen none Grafts/Implants none Complications none LEA ROJO Jan 24, 2019 11:24
[2019-01-24] MEDS ORDERED: morphine 2 MG INJ IV PRN (11:30)
[2019-01-24] MEDS ORDERED: ACETAMINOPHEN 325 MG TAB PO PRN (11:30)
[2019-01-24] MEDS ORDERED: ONDANSETRON 4 MG INJ IV PRN (11:30)
[2019-01-24] MEDS ORDERED: AL HYDROX/MG HYDROX/SIMETH 30 ML CUP PO PRN (11:30)
[2019-01-24] MEDS ORDERED: OXYCODONE/ACETAMINOPHEN (5/325) TAB PO PRN (11:30)
--- NOTE | 2019-01-24 11:42 | PN ---
Date/Time of Note Date/Time of Note DATE: 01/24/19 TIME: 11:40 Assessment/Plan VTE Prophylaxis Risk score (from Ns)>0 risk: 1 SCD applied (from Nsg): Yes Pharmacological prophylaxis: LMWH Lines/Catheters IV Catheter Type (from Nrsg): Saline Lock Urinary Cath still in place: No Assessment/Plan Hospital Course Patient is taken to [facility] making [facility], no acute events reported prior to procedure. Assessment/Plan -Non-STEMI, continue aspirin and Lovenox. Continue nitroglycerin and morphine PRN for chest pain. Plan for cardiac [employer] making lab[facility]. Dr. Ivory is following in cardiology consultation. -Every day smoker, cessation is strongly advised. Further recommendations based on clinical course. Plan of care discussed with Dr. Milligan. Result Diagram: 01/24/1953701/24/1938 Results 24hrs Laboratory Tests Test 01/24/19 05:38 White Blood Count 9.9 Red Blood Count 4.53 L Hemoglobin 14.0 Hematocrit 43.1 Mean Corpuscular Volume 95.1 Mean Corpuscular Hemoglobin 30.9 Mean Corpuscular Hemoglobin Concent 32.5 Red Cell Distribution Width 12.7 Platelet Count 265 Mean Platelet Volume 10.3 Immature Granulocytes % 0.300 Neutrophils % 48.6 Lymphocytes % 36.8 Monocytes % 10.0 Eosinophils % 3.8 Basophils % 0.5 Nucleated Red Blood Cells % 0.0 Immature Granulocytes # 0.030 Neutrophils # 4.8 Lymphocytes # 3.6 H Monocytes # 1.0 H Eosinophils # 0.4 Basophils # 0.1 Nucleated Red Blood Cells # 0.0 Prothrombin Time 12.5 Prothrombin Time Ratio 1.0 INR International Normalized Ratio 0.92 Activated Partial Thromboplast Time 40.1 H Sodium Level 140 Potassium Level 4.6 Chloride Level 106 Carbon Dioxide Level 28 Anion Gap 6 Blood Urea Nitrogen 14 Creatinine 0.99 Est Glomerular Filtrat Rate mL/min > 60 Glucose Level 108 Calcium Level 9.0 Exam/Review of Systems Exam Vitals Vital Signs Date Temp Pulse Resp B/P (MAP) Pulse Ox O2 O2 Flow FiO2 Time Delivery Rate 01/24/19 Room Air 07:59 01/24/19 98.1 50 18 125/85 97 07:22 (98) 01/22/19 14:52 Intake and Output 01/23/19 01/23/19 01/24/19 1515:00 23:00 07:00 IntakeIntake Total 900 ml BalanceBalance 900 ml Results Results 24hrs Laboratory Tests Test 01/24/19 05:38 White Blood Count 9.9 Red Blood Count 4.53 L Hemoglobin 14.0 Hematocrit 43.1 Mean Corpuscular Volume 95.1 Mean Corpuscular Hemoglobin 30.9 Mean Corpuscular Hemoglobin Concent 32.5 Red Cell Distribution Width 12.7 Platelet Count 265 Mean Platelet Volume 10.3 Immature Granulocytes % 0.300 Neutrophils % 48.6 Lymphocytes % 36.8 Monocytes % 10.0 Eosinophils % 3.8 Basophils % 0.5 Nucleated Red Blood Cells % 0.0 Immature Granulocytes # 0.030 Neutrophils # 4.8 Lymphocytes # 3.6 H Monocytes # 1.0 H Eosinophils # 0.4 Basophils # 0.1 Nucleated Red Blood Cells # 0.0 Prothrombin Time 12.5 Prothrombin Time Ratio 1.0 INR International Normalized Ratio 0.92 Activated Partial Thromboplast Time 40.1 H Sodium Level 140 Potassium Level 4.6 Chloride Level 106 Carbon Dioxide Level 28 Anion Gap 6 Blood Urea Nitrogen 14 Creatinine 0.99 Est Glomerular Filtrat Rate mL/min > 60 Glucose Level 108 Calcium Level 9.0 Medications Medication Current Medications IV Flush (NS 3 ml) 3 ml PER PROTOCOL IV ; Start 01/22/19 at 12:30 Nitroglycerin (Nitroglycerin (Sl Tab) 0.4 Mg) 1 tab Q5M PRN SL .CHEST PAIN; Start 01/22/19 at 12:30 Acetaminophen (Tylenol Tab) 650 mg Q6H PRN PO .PAIN 1-3 OR TEMP; Start 01/22/19 at 12:30 Morphine Sulfate (morphine) 2 mg Q4H PRN IV .PAIN 7-10; Start 01/22/19 at 12:30 Docusate Sodium (Colace) 100 mg Q12H PRN PO .CONSTIPATION; Start 01/22/19 at 12:30 Magnesium Hydroxide (Milk Of Mag) 30 ml DAILY PRN PO .CONSTIPATION; Start 01/22/19 at 12:30 Carvedilol (Coreg) 6.25 mg BID PO Last administered on 01/23/19at 20:04; Admin Dose 6.25 MG; Start 01/22/19 at 21:00 Aspirin (Ecotrin) 325 mg DAILY PO Last administered on 01/23/19at 09:43; Admin Dose 325 MG; Start 01/23/19 at 09:00 Atorvastatin Calcium (Lipitor) 80 mg HS PO Last administered on 01/23/19at 20:02; Admin Dose 80 MG; Start 01/23/19 at 21:00 Famotidine (Pepcid) 20 mg Q12 PO Last administered on 01/23/19at 20:02; Admin Dose 20 MG; Start 01/23/19 at 21:00 Acetaminophen (Tylenol Tab) 650 mg Q4H PRN PO PAIN; Start 01/24/19 at 11:30 Oxycodone/ Acetaminophen (Percocet (5/ 325)) 1 tab Q4H PRN PO PAIN; Start 01/24/19 at 11:30 Morphine Sulfate (morphine) 1 mg Q1H PRN IV PAIN; Start 01/24/19 at 11:30 Zolpidem Tartrate (Ambien) 5 mg HS MAY REPEAT X 1 PRN PO INSOMNIA; Start 01/24/19 at 21:00 Al Hydrox/Mg Hydrox/Simethicone (Mag-Al Plus) 30 ml Q4H PRN PO GASTROINTESTINAL UPSET; Start 01/24/19 at 11:30 Ondansetron HCl (Zofran Inj) 4 mg Q4H PRN IV NAUSEA AND/OR VOMITING; Start 01/24/19 at 11:30 Sodium Chloride 1,000 ml @ 75 mls/hr [id number] IV ; Start 01/24/19 at 11:24; Stop 01/25/19 at 00:43 NOE CARBONE Jan 24, 2019 11:42
[2019-01-24] MEDS: ASPIRIN (EC) 325 MG TAB PO SCH (12:00)
[2019-01-24] MEDS ORDERED: hydrALAzine 20 MG INJ IV PRN (20:00)
--- NOTE | 2019-01-24 20:16 | RADRPT ---
Vent Rate: 61 bpm RR Interval: 976 msec MO Interval: 155 msec QRS Duration: 76 msec QT Interval: 403 msec QTC Interval: 408 msec P-R-T [place]: 60 - 73 - 61 degrees Sinus rhythm...normal P axis, V-rate 50- 99 Electronically Signed By: Ludwig Ivory
[2019-01-24] MEDS: ATORVASTATIN 80 MG TAB PO SCH (20:41)
[2019-01-24] MEDS: BENAZEPRIL 20 MG TAB PO SCH (20:41)
[2019-01-24] MEDS ORDERED: ZOLPIDEM 5 MG TAB PO PRN (21:00)
[2019-01-25] VITALS (13 sets, daily range): BP systolic 108–152; BP diastolic 54–102; PULSE 42–65; RESP 13–27
[2019-01-25] MEDS: FAMOTIDINE 20 MG TAB PO SCH (08:55)
[2019-01-25] MEDS: ASPIRIN (EC) 325 MG TAB PO SCH (08:55)
[2019-01-25] MEDS: BENAZEPRIL 20 MG TAB PO SCH (08:56)
--- NOTE | 2019-01-25 11:22 | CONS ---
Assessment/Plan Assessment/Plan Hospital Course (Demo Recall) IMPRESSION: 1. Non-ST elevation myocardial infarction with now down trending cardiac enzymes. POD#1 s/p stent x 2 to LCX/OM in kissing stent technique 2. Chest pain secondary to #1 consistent with angina. 3. Abnormal electrocardiogram with anterolateral ST depressions, borderline. 4. Hypertension. 5. Bradycardia-to high 30's overniught when sl;eepng, improved when awake in 50-60's, asymptomatic 6. Dyslipidemia with low HDL. 7. Tobacco dependence. Recc: -Tele -Continue asa now 81 mg /statin and now brilinta 90 po bid -d/c coreg given bradycardia -continue benazepril with well controlled BP -outpatient f/u with me and given card to contact me Consultation Date/Type/Reason Admit Date/Time Jan 22, 2019 at 03:26 Initial Consult Date 01/23/19 Type of Consult Cardiology Reason for Consultation Nstemi Requesting Provider: ASHISH DUMAS MD Date/Time of Note DATE: 01/25/19 TIME: 11:16 Exam/Review of Systems Vital Signs Vitals Vital Signs Date Temp Pulse Resp B/P (MAP) Pulse Ox O2 O2 Flow FiO2 Time Delivery Rate 01/25/19 48 16 108/83 98 Room Air 10:00 (91) 01/25/19 98.4 08:00 01/22/19 14:52 Intake and Output 01/24/19 01/24/19 01/25/19 1515:00 23:00 07:00 IntakeIntake Total 465 ml 1140 ml 450 ml BalanceBalance 465 ml 1140 ml 450 ml Exam Exam Review of Systems: CONSTITUTIONAL: No fevers, chills. PULMONARY: No sob CARDIOVASCULAR: No chest pain/palpitations GASTROINTESTINAL: No nausea/vomiting. GENITOURINARY: No hematuria/dysuria. MUSCULOSKELETAL: No myagias/arthalgias. PSYCHIATRIC: The patient denies depression. NEUROLOGIC: No weakness Constitutional: alert Psych: no complaints Head: normocephalic ENMT: mucosa pink and moist Neck: jvd Respiratory: diminished breath sounds Cardiovascular: other (bradycardia, ) Gastrointestinal: soft, non-tender Musculoskeletal: muscle tone (normal) Extremities: edema (none) Neurological: other (No focal deficits) Labs Result Diagram: 01/25/19 0452 01/25/19 0452 Results 24hrs Laboratory Tests Test 01/24/19 19:51 01/25/19 04:52 Creatine Kinase 123 141 Creatine Kinase Index 2.5 4.6 Creatinine Kinase MB (Mass) 3.05 H 6.48 H Troponin I 1.010 *H 1.170 *H White Blood Count 10.2 Red Blood Count 4.37 L Hemoglobin 13.6 L Hematocrit 41.2 L Mean Corpuscular Volume 94.3 Mean Corpuscular Hemoglobin 31.1 Mean Corpuscular Hemoglobin Concent 33.0 Red Cell Distribution Width 12.4 Platelet Count 256 Mean Platelet Volume 9.9 Immature Granulocytes % 0.400 Neutrophils % 61.4 Lymphocytes % 25.4 Monocytes % 8.6 Eosinophils % 3.8 Basophils % 0.4 Nucleated Red Blood Cells % 0.0 Immature Granulocytes # 0.040 H Neutrophils # 6.3 Lymphocytes # 2.6 Monocytes # 0.9 Eosinophils # 0.4 Basophils # 0.0 Nucleated Red Blood Cells # 0.0 Sodium Level 139 Potassium Level 4.7 Chloride Level 104 Carbon Dioxide Level 29 Anion Gap 6 Blood Urea Nitrogen 13 Creatinine 0.99 Est Glomerular Filtrat Rate mL/min > 60 Glucose Level 91 Calcium Level 9.3 Medications Medications Current Medications IV Flush (NS 3 ml) 3 ml PER PROTOCOL IV ; Start 01/22/19 at 12:30 Nitroglycerin (Nitroglycerin (Sl Tab) 0.4 Mg) 1 tab Q5M PRN SL .CHEST PAIN; Start 01/22/19 at 12:30 Acetaminophen (Tylenol Tab) 650 mg Q6H PRN PO .PAIN 1-3 OR TEMP; Start 01/22/19 at 12:30 Morphine Sulfate (morphine) 2 mg Q4H PRN IV .PAIN 7-10 Last administered on 01/24/19at 12:52; Admin Dose 2 MG; Start 01/22/19 at 12:30 Docusate Sodium (Colace) 100 mg Q12H PRN PO .CONSTIPATION; Start 01/22/19 at 12:30 Magnesium Hydroxide (Milk Of Mag) 30 ml DAILY PRN PO .CONSTIPATION; Start 01/22/19 at 12:30 Aspirin (Ecotrin) 325 mg DAILY PO Last administered on 01/25/19at 08:55; Admin Dose 325 MG; Start 01/23/19 at 09:00 Atorvastatin Calcium (Lipitor) 80 mg HS PO Last administered on 01/24/19at 20:41; Admin Dose 80 MG; Start 01/23/19 at 21:00 Famotidine (Pepcid) 20 mg Q12 PO Last administered on 01/25/19at 08:55; Admin Dose 20 MG; Start 01/23/19 at 21:00 Acetaminophen (Tylenol Tab) 650 mg Q4H PRN PO PAIN; Start 01/24/19 at 11:30 Oxycodone/ Acetaminophen (Percocet (5/ 325)) 1 tab Q4H PRN PO PAIN; Start 01/24/19 at 11:30 Morphine Sulfate (morphine) 1 mg Q1H PRN IV PAIN; Start 01/24/19 at 11:30 Zolpidem Tartrate (Ambien) 5 mg HS MAY REPEAT X 1 PRN PO INSOMNIA Last administered on 01/24/19at 22:11; Admin Dose 5 MG; Start 01/24/19 at 21:00 Al Hydrox/Mg Hydrox/Simethicone (Mag-Al Plus) 30 ml Q4H PRN PO GASTROINTESTINAL UPSET; Start 01/24/19 at 11:30 Ondansetron HCl (Zofran Inj) 4 mg Q4H PRN IV NAUSEA AND/OR VOMITING; Start 01/24/19 at 11:30 Carvedilol (Coreg) 3.125 mg BID PO ; Start 01/24/19 at 21:00 Benazepril HCl (Lotensin) 20 mg BID PO Last administered on 01/25/19at 08:56; Admin Dose 20 MG; Start 01/24/19 at 21:00 Hydralazine HCl (Apresoline) 10 mg Q4H PRN IV SBP>170 DBP>100; Start 01/24/19 at 20:00 LEA ROJO Jan 25, 2019 11:22
[2019-01-25] MEDS ORDERED: TICAGRELOR 90 MG TABLET PO SCH (12:30)
--- NOTE | 2019-01-25 16:01 | RADRPT ---
Vent Rate: 49 bpm RR Interval: 1220 msec OR Interval: 149 msec QRS Duration: 79 msec QT Interval: 443 msec QTC Interval: 401 msec P-R-T [place]: 47 - 70 - 87 degrees Sinus bradycardia...rate< 50 Electronically Signed By: Ludwig Ivory
[2019-01-26] MEDS ORDERED: ASPIRIN 81 MG TAB PO SCH (09:00)
--- NOTE | 2019-01-27 18:52 | DS ---
Date/Time of Note Date/Time of Note DATE: 01/27/19 TIME: 18:47 Discharge Summary Admission/Discharge Info Admit Date/Time Jan 22, 2019 at 03:26 Discharge Date/Time Jan 25, 2019 at 13:45 Patient Condition: Stable Hx of Present Illness The patient is 43-year-old [place] male who denies any chronic conditions. Patient developed intermittent chest pressure over the last 5 days which got extremely worse yesterday. Pain with radiation to shoulders, upper extremities, and neck. Patient also complains of shortness of breath on exertion and mild nausea. Patient denies fevers chills denies extremity swelling. Patient smokes 2 packs of cigarettes a day smoked for 30 years. Patient does not follow with any physician currently. Patient received aspirin and morphine in the emergency room with some relief in symptoms. Patient will be admitted for further evaluation and management. Hospital Course -Non-STEMI, Obstructive coronary artery disease involving a bifurcation lesion in the circumflex, status post successful PTCA and drug-eluting stent x 2 to LCX/OM in kissing stent technique by Dr. Ivory on 01/24/19. Continue aspirin and Brilinta. -Hypertension, continue lisinopril. -Every day smoker, cessation is strongly advised. Prescription for nicotine patch is given. Case management for authorization for Brilinta and designation of primary care physician according to patient's insurance. Plan of care discussed with Dr. Milligan. Home Meds Active Scripts Nicotine* (Nicotine* Patch) 21 mg/day Patch, 1 EACH TD DAILY for 30 Days, PATCH Prov:NOE CARBONE 01/25/19 Aspirin (Aspirin) 81 Mg Chew, 81 MG PO DAILY for 30 Days, TAB 1 Refill Prov:NOE CARBONE 01/25/19 Benazepril Hcl* (Benazepril Hcl*) 20 Mg Tablet, 20 MG PO BID for 30 Days, TAB Prov:NOE CARBONE 01/25/19 Atorvastatin* (Atorvastatin*) 80 Mg Tablet, 80 MG PO HS for 30 Days, TAB Prov:NOE CARBONE 01/25/19 Ticagrelor* (Brilinta*) 90 Mg Tablet, 90 MG PO BID for 30 Days, TAB 2 Refills Prov:NOE CARBONE 01/25/19 Discontinued Reported Medications Ibuprofen* (Ibuprofen*) 200 Mg Capsule, 800 MG PO QID PRN for PAIN, CAP 01/22/19 Follow-up Plan f/up with Dr Ivory in 2 weeks, f/up with PMD in 2 weeks. Primary Care Provider Alejandro Kuhn DO Time spent on discharge: > 30 minutes NOE CARBONE Jan 27, 2019 18:52
== END 2019-01-25 13:45 | disposition home or self-care (01) | DRG 247 ==
LOC: E/R 23:28 → 6WM 01-22 03:26 → ICU 01-24 12:02
PROVIDERS: ADMIT Internal Medicine; ATTEND Internal Medicine
PROC: B211YZZ Fluoroscopy of Multiple Coronary Arteries using Other Contrast (ICD-10-PCS; 2019-01-24)
PROC: 0271356 Dilation of Coronary Artery, Two Arteries, Bifurcation, with Two Drug-eluting Intraluminal Devices, Percutaneous Approach (ICD-10-PCS; principal; 2019-01-24 09:00)
PROC: 4A023N7 Measurement of Cardiac Sampling and Pressure, Left Heart, Percutaneous Approach (ICD-10-PCS; 2019-01-24 09:00)
DX: I21.4 Non-ST elevation (NSTEMI) myocardial infarction (principal); F17.200 Nicotine dependence, unspecified, uncomplicated; I10 Essential (primary) hypertension; R00.1 Bradycardia, unspecified; E78.5 Hyperlipidemia, unspecified; E87.6 Hypokalemia; I25.10 Atherosclerotic heart disease of native coronary artery without angina pectoris
CPT/HCPCS: 36415; 71045; 80048; 80053; 80061; 82550; 82553; 83036; 83735; 83880; 84443; 84484; 85025; 85610; 85730; 87081; 92928; 93005; 93306; 93458; C1725; C1874; C1887; J0583; J1644; J1650; J2250; J2270; J2405; J3010; J3480; J7030; Q9967